=== PATIENT | male | born 1980 | race Caucasian/White ===

== ENCOUNTER → 2018-04-04 | Outpatient (CLI) | payer OTHER ==
[~2018-04-04] MED LIST: AMOXICILLIN500 M2 PO; CARVEDILOL12.5 MG PO; COREG12.5 MG PO; CYCLOBENZAPRINE5 MG PO; HYDR25T PO; LISINOPRIL20 MG PO; MEDROL DOSEPAK4 MG PO; MOTRIN600 MG PO; MOTRIN800 MG PO; PREDNISONE20 M1 PO; PROTONIX40 MG PO; ROBAXIN500 MG PO; ROBITUSSIN DM 105 ML PO; ZOFRAN ODT4 MG SL
[2018-04-04 17:13] LABS: BASO % 0.3 % (0.0-1.0); EOS # 0.5 10*3/uL (0.0-0.4); EOS % 5.5 % (1.0-4.0); HEMATOCRIT 44.5 % (42.0-52.0); HEMOGLOBIN 14.9 g/dl (14.0-18.0); LYMPH # 2.1 10*3/uL (1.3-4.4); LYMPH % 21.8 % (27.0-41.0); MEAN CELL VOLUME 85.7 fl (80.0-94.0); MEAN CORPUSCULAR HGB 28.7 pg (27.0-31.0); MEAN CORPUSCULAR HGB CONC 33.5 g/dl (33.0-37.0); MEAN PLATELET VOLUME 9.4 fl (9.6-12.3); MONO # 0.7 10*3/uL (0.1-1.0); MONO % 7.2 % (3.0-9.0); NEUT # 6.2 10*3/uL (2.3-7.9); NEUT % 64.8 % (47.0-73.0); PLATELET COUNT AUTOMATED 263 10*3/uL (130-400); RED BLOOD COUNT 5.19 10*6/uL (4.50-5.90); RED CELL DISTRI WIDTH 13.1 % (0-14.5); WHITE BLOOD COUNT 9.6 10*3/uL (4.8-10.8)
[2018-04-04 17:32] LABS: ALBUMIN 4.1 gm/dl (3.1-4.5); ALKALINE PHOSPHATASE 84 U/L (45-117); BUN 10 mg/dl (7-24); CHLORIDE 106 mmol/L (98-107); CHOLESTEROL 183 mg/dL (<200); CREATININE 1.04 mg/dL (0.70-1.30); HDL CHOLESTEROL 36 mg/dl (40-60); LDL CHOLESTEROL 127 mg/dL (9-159); POTASSIUM 3.2 mmol/L (3.5-5.1); SGOT/AST 13 IU/L (3-35); SGPT/ALT 49 U/L (12-78); SODIUM 143 mmol/L (136-145); TOTAL PROTEIN 7.2 gm/dL (6.4-8.2); TRIGLYCERIDES 100 mg/dl (<150); VLDL CHOLESTEROL 20 mg/dL (6-40)
== END | disposition home or self-care (01) ==
LOC: LAB 16:51
PROVIDERS: Internal Medicine
DX: I10 Essential (primary) hypertension (principal); E78.2 Mixed hyperlipidemia

== ENCOUNTER 2018-05-07 16:31 | Emergency (ER) | payer OTHER ==
[~2018-05-07] VITALS: Ht 179 cm; Wt 108.9 kg
== END 2018-05-07 16:50 | disposition home or self-care (01) ==
LOC: ED 16:31
DX: S80.862A Insect bite (nonvenomous), left lower leg, initial encounter (principal); I10 Essential (primary) hypertension; Z79.899 Other long term (current) drug therapy; W57.XXXA Bitten or stung by nonvenomous insect and other nonvenomous arthropods, initial encounter; Y93.89 Activity, other specified; Y92.89 Other specified places as the place of occurrence of the external cause; Y99.9 Unspecified external cause status

== ENCOUNTER 2018-11-13 10:51 | Emergency (ER) | payer OTHER ==
[~2018-11-13] VITALS: Ht 177.8 cm; Wt 104.3 kg
--- NOTE | ~2018-11-13 | EKG ---
[place], [place] ELECTROCARDIOGRAM REPORT NAME: JOSELYN BARRIENTOS UNIT #: [id number] ROOM: DOCTOR: EPIPHANY DRAFT REPORT BIRTHDATE: [birth year] [facility] Test Date: 2018-11-13 Test Time: 12:49:55 Pat Name: JOSELYN BARRIENTOS Department: Room: Gender: M Pediatric Cns: : 1980 Requested By: KELSEY MACHADO DNP Order Number: [id number] Reading MD: Santos Darby MD Measurements Intervals [place] Rate: 71 P: 33 DC: 177 QRS: -34 QRSD: 111 T: 110 QT: 418 QTc: 455 Interpretive Statements Sinus rhythm Incomplete RBBB and LAFB Abnormal R-wave progression, late transition Nonspecific T abnormalities, lateral leads No previous ECG available for comparison Electronically Signed On 11-13-2018 15:40:02 PST by Santos Darby MD CM:EKGRPT:ELECTROCARDIOGRAM REPORT [id number] KELSEY REA DRAFT REPORT KELSEY MACHADO DNP
[2018-11-13 11:22] LABS: BASO % 0.2 % (0.0-1.0); EOS # 0.1 10*3/uL (0.0-0.4); EOS % 0.5 % (1.0-4.0); HEMATOCRIT 44.4 % (42.0-52.0); HEMOGLOBIN 15.1 g/dl (14.0-18.0); LYMPH # 0.9 10*3/uL (1.3-4.4); MEAN CELL VOLUME 86.7 fl (80.0-94.0); MEAN CORPUSCULAR HGB 29.5 pg (27.0-31.0); MEAN PLATELET VOLUME 9.2 fl (9.6-12.3); MONO # 0.6 10*3/uL (0.1-1.0); NEUT # 8.3 10*3/uL (2.3-7.9); PLATELET COUNT AUTOMATED 241 10*3/uL (130-400); RED BLOOD COUNT 5.12 10*6/uL (4.50-5.90); RED CELL DISTRI WIDTH 13.2 % (0-14.5); WHITE BLOOD COUNT 9.8 10*3/uL (4.8-10.8)
[2018-11-13 11:36] LABS: ALBUMIN 3.6 gm/dl (3.1-4.5); ALKALINE PHOSPHATASE 76 U/L (45-117); BUN 10 mg/dl (7-24); CHLORIDE 104 mmol/L (98-107); CREATININE 1.05 mg/dL (0.70-1.30); LIPASE 71 U/L (73-393); POTASSIUM 3.1 mmol/L (3.5-5.1); SGOT/AST 14 IU/L (3-35); SGPT/ALT 43 U/L (12-78); SODIUM 139 mmol/L (136-145); TOTAL PROTEIN 6.9 gm/dL (6.4-8.2)
[2018-11-13] MEDS ORDERED: ZOFRAN4 MG PO (15:02)
== END 2018-11-13 14:57 | disposition left against medical advice (07) ==
LOC: ED 10:51
PROVIDERS: Nurse Practitioner Family
DX: E87.6 Hypokalemia (principal); I10 Essential (primary) hypertension; R10.13 Epigastric pain

== ENCOUNTER 2019-02-26 15:23 | Emergency (ER) | payer OTHER ==
[~2019-02-26] VITALS: Ht 180.3 cm; Wt 108.9 kg
[~2019-02-26 15:23] MED LIST changes: +ZOFRAN4 MG PO
[2019-02-26] MEDS ORDERED: CEFADROXIL500 M1 PO (15:45)
== END 2019-02-26 15:57 | disposition home or self-care (01) ==
LOC: ED 15:23
DX: S61.012A Laceration without foreign body of left thumb without damage to nail, initial encounter (principal); W26.0XXA Contact with knife, initial encounter; Y93.89 Activity, other specified; Y92.89 Other specified places as the place of occurrence of the external cause; Y99.8 Other external cause status

== ENCOUNTER 2020-01-29 14:22 | Emergency (ER) | payer OTHER ==
[~2020-01-29] VITALS: Ht 177.8 cm; Wt 113.4 kg
[~2020-01-29 14:22] MED LIST changes: +CEFADROXIL500 M1 PO
[2020-01-29 15:06] LABS: BASO % 0.4 % (0.0-1.0); EOS # 0.6 10*3/uL (0.0-0.4); EOS % 6.8 % (1.0-4.0); HEMATOCRIT 43.4 % (42.0-52.0); LYMPH # 2.3 10*3/uL (1.3-4.4); MEAN CELL VOLUME 87.3 fl (80.0-94.0); MEAN CORPUSCULAR HGB CONC 34.3 g/dl (33.0-37.0); MEAN PLATELET VOLUME 9.2 fl (9.6-12.3); MONO # 0.7 10*3/uL (0.1-1.0); MONO % 7.4 % (3.0-9.0); NEUT # 5.3 10*3/uL (2.3-7.9); NEUT % 59.2 % (47.0-73.0); PLATELET COUNT AUTOMATED 248 10*3/uL (130-400); RED BLOOD COUNT 4.97 10*6/uL (4.50-5.90); RED CELL DISTRI WIDTH 12.9 % (0-14.5); WHITE BLOOD COUNT 8.9 10*3/uL (4.8-10.8)
[2020-01-29 15:57] LABS: ALBUMIN 3.6 gm/dl (3.1-4.5); ALKALINE PHOSPHATASE 83 U/L (45-117); BUN 9 mg/dl (7-24); CHLORIDE 105 mmol/L (98-107); CREATININE 1.03 mg/dL (0.70-1.30); POTASSIUM 3.4 mmol/L (3.5-5.1); SGOT/AST 12 IU/L (3-35); SGPT/ALT 42 U/L (12-78); SODIUM 139 mmol/L (136-145); TOTAL PROTEIN 6.9 gm/dL (6.4-8.2)
[2020-01-29 16:01] LABS: TROPONIN I < 0.015 ng/ml (<0.045)
[2020-01-29] MEDS ORDERED: KENALOG 0.1%80 GM T (16:06)
[2020-01-29] MEDS ORDERED: PREDNISONE20 M1 PO (16:06)
== END 2020-01-29 16:22 | disposition home or self-care (01) ==
LOC: ED 14:22
PROVIDERS: Nurse Practitioner Family
DX: L25.9 Unspecified contact dermatitis, unspecified cause (principal); I10 Essential (primary) hypertension; G43.909 Migraine, unspecified, not intractable, without status migrainosus

== ENCOUNTER → 2020-05-28 | Outpatient (CLI) | payer OTHER ==
[~2020-05-28] MED LIST changes: +KENALOG 0.1%80 GM T
== END | disposition home or self-care (01) ==
LOC: US 05:42
DX: I10 Essential (primary) hypertension (principal)

== ENCOUNTER 2020-06-16 00:57 | Emergency (ER) | payer OTHER ==
[~2020-06-16] VITALS: Ht 180.3 cm; Wt 113.4 kg
[2020-06-16 02:15] LABS: BASO % 0.2 % (0.0-1.0); EOS # 0.3 10*3/uL (0.0-0.4); HEMATOCRIT 43.5 % (42.0-52.0); LYMPH # 1.6 10*3/uL (1.3-4.4); LYMPH % 16.7 % (27.0-41.0); MEAN CELL VOLUME 86.5 fl (80.0-94.0); MEAN CORPUSCULAR HGB 28.6 pg (27.0-31.0); MEAN CORPUSCULAR HGB CONC 33.1 g/dl (33.0-37.0); MEAN PLATELET VOLUME 9.7 fl (9.6-12.3); MONO # 0.5 10*3/uL (0.1-1.0); MONO % 5.5 % (3.0-9.0); NEUT # 7.2 10*3/uL (2.3-7.9); NEUT % 74.4 % (47.0-73.0); PLATELET COUNT AUTOMATED 272 10*3/uL (130-400); RED BLOOD COUNT 5.03 10*6/uL (4.50-5.90); RED CELL DISTRI WIDTH 12.8 % (0-14.5); WHITE BLOOD COUNT 9.7 10*3/uL (4.8-10.8)
[2020-06-16 02:27] LABS: BUN 14 mg/dl (7-24); CHLORIDE 104 mmol/L (98-107); CREATININE 1.02 mg/dL (0.70-1.30); POTASSIUM 3.7 mmol/L (3.5-5.1); SODIUM 140 mmol/L (136-145)
[2020-06-16] MEDS ORDERED: NORCO 5-325 TA1 EACH PO (05:27)
== END 2020-06-16 05:42 | disposition home or self-care (01) ==
LOC: ED 00:57
PROVIDERS: Emergency Medicine Emergency Medical Services
DX: N50.812 Left testicular pain (principal); N50.1 Vascular disorders of male genital organs; I10 Essential (primary) hypertension; G43.909 Migraine, unspecified, not intractable, without status migrainosus; Z79.899 Other long term (current) drug therapy

== ENCOUNTER 2021-05-28 01:52 | Emergency (ER) | payer OTHER ==
[~2021-05-28] VITALS: Wt 117.9 kg
[~2021-05-28 01:52] MED LIST changes: +NORCO 5-325 TA1 EACH PO
[2021-05-28] MEDS ORDERED: FLOMAX0.4 MG PO (03:28)
[2021-05-28] MEDS ORDERED: ZOFRAN4 MG PO (03:28)
== END 2021-05-28 03:35 | disposition home or self-care (01) ==
LOC: ED 01:52
DX: N13.2 Hydronephrosis with renal and ureteral calculous obstruction (principal)

== ENCOUNTER 2021-06-13 19:34 | Emergency (ER) | payer OTHER ==
[~2021-06-13] VITALS: Ht 177.8 cm; Wt 117.9 kg
[~2021-06-13 19:34] MED LIST changes: +FLOMAX0.4 MG PO
[2021-06-13 20:49] LABS: BASO % 0.2 % (0.0-1.0); EOS # 0.5 10*3/uL (0.0-0.4); EOS % 5.4 % (1.0-4.0); HEMATOCRIT 43.3 % (42.0-52.0); LYMPH # 2.3 10*3/uL (1.3-4.4); LYMPH % 25.8 % (27.0-41.0); MEAN CELL VOLUME 86.9 fl (80.0-94.0); MEAN CORPUSCULAR HGB 29.3 pg (27.0-31.0); MEAN CORPUSCULAR HGB CONC 33.7 g/dl (33.0-37.0); MEAN PLATELET VOLUME 9.6 fl (9.6-12.3); MONO # 0.7 10*3/uL (0.1-1.0); MONO % 7.7 % (3.0-9.0); NEUT # 5.4 10*3/uL (2.3-7.9); NEUT % 60.6 % (47.0-73.0); PLATELET COUNT AUTOMATED 279 10*3/uL (130-400); RED BLOOD COUNT 4.98 10*6/uL (4.50-5.90); WHITE BLOOD COUNT 8.9 10*3/uL (4.8-10.8)
[2021-06-13 21:06] LABS: ALBUMIN 3.6 gm/dl (3.1-4.5); ALKALINE PHOSPHATASE 73 U/L (45-117); BUN 14 mg/dl (7-24); CHLORIDE 104 mmol/L (98-107); CREATININE 1.01 mg/dL (0.70-1.30); LIPASE 85 U/L (73-393); POTASSIUM 3.2 mmol/L (3.5-5.1); SGOT/AST 17 IU/L (3-35); SGPT/ALT 57 U/L (12-78); SODIUM 140 mmol/L (136-145); TOTAL PROTEIN 6.9 gm/dL (6.4-8.2)
[2021-06-13 23:23] LABS: BILIRUBIN Negative (Negative); BLOOD 3+ (Negative); CLARITY Clear (Clear); COLOR Yellow (Yellow); GLUCOSE Negative (Negative); KETONE Trace (Negative); LEUKO ESTERASE Negative (Negative); NITRITE Negative (Negative); PH 5.5 (4.5-8.0); SPECIFIC GRAVITY 1.025 (1.001-1.030)
[2021-06-14 00:09] LABS: RBC 31-40 rbc/hpf (0-2)
[2021-06-14] MEDS ORDERED: PRIMLEV 5-3001 EACH PO (04:01)
[2021-06-14] MEDS ORDERED: HYDROCODONE-AC1 EAC1 PO (16:07)
== END 2021-06-14 04:10 | disposition home or self-care (01) ==
LOC: ED 19:34
PROVIDERS: Physician Assistant
DX: N20.0 Calculus of kidney (principal)

== ENCOUNTER 2021-06-23 17:18 | Emergency (ER) | payer OTHER ==
[~2021-06-23 17:18] MED LIST changes: +HYDROCODONE-AC1 EAC1 PO; +PRIMLEV 5-3001 EACH PO
== END 2021-06-23 22:10 | disposition left against medical advice (07) ==
LOC: ED 17:18
DX: N20.0 Calculus of kidney (principal); Z53.21 Procedure and treatment not carried out due to patient leaving prior to being seen by health care provider

== ENCOUNTER 2021-07-06 02:33 | Emergency (ER) | payer OTHER ==
[~2021-07-06] VITALS: Ht 177.8 cm; Wt 117.9 kg
[2021-07-06 04:52] LABS: BASO % 0.2 % (0.0-1.0); EOS # 0.5 10*3/uL (0.0-0.4); EOS % 4.8 % (1.0-4.0); HEMATOCRIT 42.9 % (42.0-52.0); LYMPH # 1.9 10*3/uL (1.3-4.4); LYMPH % 19.1 % (27.0-41.0); MEAN CELL VOLUME 87.6 fl (80.0-94.0); MEAN CORPUSCULAR HGB 29.2 pg (27.0-31.0); MEAN CORPUSCULAR HGB CONC 33.3 g/dl (33.0-37.0); MEAN PLATELET VOLUME 9.4 fl (9.6-12.3); MONO # 0.9 10*3/uL (0.1-1.0); MONO % 9.1 % (3.0-9.0); NEUT # 6.6 10*3/uL (2.3-7.9); NEUT % 66.4 % (47.0-73.0); PLATELET COUNT AUTOMATED 245 10*3/uL (130-400); RED CELL DISTRI WIDTH 12.9 % (0-14.5); WHITE BLOOD COUNT 9.9 10*3/uL (4.8-10.8)
[2021-07-06 05:08] LABS: ALBUMIN 3.6 gm/dl (3.1-4.5); ALKALINE PHOSPHATASE 75 U/L (45-117); BUN 19 mg/dl (7-24); CHLORIDE 103 mmol/L (98-107); CREATININE 1.35 mg/dL (0.70-1.30); POTASSIUM 3.5 mmol/L (3.5-5.1); SGOT/AST 18 IU/L (3-35); SGPT/ALT 53 U/L (12-78); SODIUM 138 mmol/L (136-145); TOTAL PROTEIN 6.8 gm/dL (6.4-8.2)
[2021-07-06 06:00] LABS: BILIRUBIN Negative (Negative); BLOOD Negative (Negative); CLARITY Clear (Clear); COLOR Yellow (Yellow); GLUCOSE Negative (Negative); KETONE Negative (Negative); LEUKO ESTERASE Negative (Negative); NITRITE Negative (Negative); UROBILINOGEN 0.2 E.U./dl (0.0-1.0)
[2021-07-06 06:25] LABS: WBC 0-2 wbc/hpf (0-5)
[2021-07-06 06:26] LABS: RBC 0-2 rbc/hpf (0-2)
[2021-07-06 06:27] LABS: BACTERIA 2+
[2021-07-06] MEDS ORDERED: PERCOCET 5-3251 EACH PO (08:34)
== END 2021-07-06 09:07 | disposition home or self-care (01) ==
LOC: ED 02:33
PROVIDERS: Emergency Medicine
DX: N13.2 Hydronephrosis with renal and ureteral calculous obstruction (principal); I10 Essential (primary) hypertension; Z79.899 Other long term (current) drug therapy; Z87.442 Personal history of urinary calculi

== ENCOUNTER 2024-01-21 20:55 | Emergency (ER) | payer OTHER ==
[~2024-01-21] VITALS: Ht 177.8 cm; Wt 111.1 kg
[~2024-01-21 20:55] MED LIST changes: +PERCOCET 5-3251 EACH PO
[2024-01-21] MEDS ORDERED: AMLODIPINE BESY10 MG PO (21:02)
[2024-01-21] MEDS ORDERED: ALDACTONE25 MG PO (21:02)
[2024-01-21] MEDS ORDERED: ATORVASTATIN CA40 M1 PO (21:02)
[2024-01-21] MEDS ORDERED: Dexamethasone Sodium Phospha 20 MG/5 ML VIAL IM ONE (21:15)
[2024-01-21] MEDS ORDERED: CYCLOBENZAPRINE10 MG PO (22:43)
== END 2024-01-21 22:52 | disposition home or self-care (01) ==
LOC: ED 20:55
DX: S29.012A Strain of muscle and tendon of back wall of thorax, initial encounter (principal); Z79.899 Other long term (current) drug therapy; X50.0XXA Overexertion from strenuous movement or load, initial encounter; Y93.89 Activity, other specified; Y92.89 Other specified places as the place of occurrence of the external cause; Y99.8 Other external cause status

== ENCOUNTER 2025-02-11 17:09 | Emergency (ER) | payer OTHER ==
[~2025-02-11] VITALS: Ht 177.8 cm; Wt 115.7 kg
[~2025-02-11 17:09] MED LIST changes: +ALDACTONE25 MG PO; +AMLODIPINE BESY10 MG PO; +ATORVASTATIN CA40 M1 PO; +CYCLOBENZAPRINE10 MG PO
[2025-02-11 18:11] LABS: BASO % 0.4 % (0.0-1.0); EOS # 0.8 10*3/uL (0.0-0.4); EOS % 8.6 % (1.0-4.0); MEAN CELL VOLUME 89.1 fl (80.0-94.0); MEAN CORPUSCULAR HGB CONC 33.7 g/dl (33.0-37.0); MEAN PLATELET VOLUME 9.4 fl (9.6-12.3); MONO # 0.9 10*3/uL (0.1-1.0); MONO % 9.7 % (3.0-9.0); NEUT # 5.7 10*3/uL (2.3-7.9); NEUT % 61.9 % (47.0-73.0); PLATELET COUNT AUTOMATED 230 10*3/uL (130-400); RED BLOOD COUNT 5.16 10*6/uL (4.50-5.90); RED CELL DISTRI WIDTH 12.7 % (0-14.5); WHITE BLOOD COUNT 9.2 10*3/uL (4.8-10.8)
[2025-02-11 18:26] LABS: BUN 14 mg/dl (9-23); CHLORIDE 103 mmol/L (98-107); POTASSIUM 4.1 mmol/L (3.4-5.1)
[2025-02-11] MEDS ORDERED: AVPAK AZITHROM250 M1 PO (19:39)
[2025-02-11] MEDS ORDERED: AZITHROMYCIN 250 MG TAB PO ONE (19:40)
== END 2025-02-11 20:03 | disposition home or self-care (01) ==
LOC: ED 17:09
PROVIDERS: Nurse Practitioner Family
DX: J40 Bronchitis, not specified as acute or chronic (principal); Z20.822 Contact with and (suspected) exposure to COVID-19; I10 Essential (primary) hypertension; G43.909 Migraine, unspecified, not intractable, without status migrainosus; Z87.442 Personal history of urinary calculi; Z86.73 Personal history of transient ischemic attack (TIA), and cerebral infarction without residual deficits; Z79.899 Other long term (current) drug therapy

== ENCOUNTER → 2025-04-12 | Outpatient (CLI) | payer OTHER ==
[~2025-04-12] MED LIST changes: +AVPAK AZITHROM250 M1 PO
== END | disposition home or self-care (01) ==
LOC: US 15:08
PROVIDERS: ATTEND Nurse Practitioner Primary Care
DX: T14.8XXA Other injury of unspecified body region, initial encounter (principal); R22.42 Localized swelling, mass and lump, left lower limb; M79.605 Pain in left leg; Y84.8 Other medical procedures as the cause of abnormal reaction of the patient, or of later complication, without mention of misadventure at the time of the procedure; Y92.89 Other specified places as the place of occurrence of the external cause

== ENCOUNTER 2025-08-08 17:09 | Emergency (ER) | payer OTHER ==
[~2025-08-08] VITALS: Ht 177.8 cm; Wt 117.9 kg
[2025-08-08] MEDS ORDERED: PREDNISONE20 M1 PO (18:16)
[2025-08-08] MEDS ORDERED: AZITHROMYCIN 250 MG TAB PO ONE (18:20)
== END 2025-08-08 18:33 | disposition home or self-care (01) ==
LOC: ED 17:09
DX: J40 Bronchitis, not specified as acute or chronic (principal); M94.0 Chondrocostal junction syndrome [Tietze]; I10 Essential (primary) hypertension; G43.909 Migraine, unspecified, not intractable, without status migrainosus; Z86.73 Personal history of transient ischemic attack (TIA), and cerebral infarction without residual deficits; Z87.442 Personal history of urinary calculi